=== PATIENT | female | born 1970 | race Caucasian/White ===

== ENCOUNTER 2021-02-26 15:38 | Emergency (ER) | payer OTHER, SELFPAY ==
--- NOTE | ~2021-02-26 | XR_ITS ---
XR chest 1V portable 02/26/2021 17:23 Indication: Covid like symptoms. Procedure: AP portable chest Comparison: No prior studies for comparison. Findings: Patchy bilateral airspace disease, compatible with pneumonia. No significant effusion. Hear t size normal. No pneumothorax. No acute osseous abnormality. Impression: 1: Patchy bilateral airspace disease, compatible with pneumonia. Reviewed, dictated and finalized at location A. Impression: 1: Patchy bilateral airspace disease, compatible with pneumonia.
[2021-02-26 15:47] VITALS: BP 150/95; PULSE 120; RESP 22; TEMP 37.2; O2SAT 98
[2021-02-26 16:48] VITALS: BP 144/93; PULSE 117; RESP 22; TEMP 36.9; O2SAT 98
[2021-02-26 17:25] LABS: Basophils Percent Auto 0.3 % (0.2-1.2); Eosinophils Absolute Auto 0.1 K/mm3 (0-0.3); Hematocrit 41.7 % (37.0-47.0); Hemoglobin 13.7 g/dL (12.0-15.0); Immature Granulocyte Absolute 0.03 K/mm3 (0.00-0.031); Immature Granulocyte Percent A 0.5 % (0-0.5); Lymphocytes Absolute Auto 1.66 K/mm3 (0.9-3.2); Lymphocytes Percent Auto 27.6 % (18.3-44.2); Mean Corpuscular HGB Conc 32.9 g/dl (32-36); Mean Corpuscular Hemoglobin 27.8 pg (26-34); Mean Corpuscular Volume 84.8 fl (80-100); Mean Platelet Volume 10.4 fl (7.4-10.4); Monocytes Absolute Auto 0.4 K/mm3 (0.1-0.6); Monocytes Percent Auto 6.3 % (2.6-8.5); Neutrophils Absolute Auto 3.9 K/mm3 (1.3-6.7); Neutrophils Percent Auto 64.3 % (45.5-73.1); Platelet Count Result 168 k/mm3 (150-375); Red Blood Count 4.92 M/mm3 (4.2-5.4); Red Cell Distribution Width 13.5 % (11.5-14.5)
--- NOTE | 2021-02-26 17:34 | ED.URI ---
HPI - URI/Sore Throat General Chief Complaint: Upper Respiratory Infection Stated Complaint: SOB Time Seen by Provider: 02/26/21 17:05 Source: patient Mode of arrival: ambulatory Limitations: no limitations History of Present Illness HPI Narrative: Patient is 51 years old white female unvaccinated for Covid, presents with Covid symptoms started 10 days ago in the form of headache, fever, chills, coughing, loss of taste and smell. Patient son tested +7 days ago. Currently patient main complaint is coughing and general weakness. Related Data Home Medications Medication Instructions Recorded Confirmed aspirin 02/26/21 Allergies Allergy/AdvReac Type Severity Reaction Status Date / Time azithromycin Allergy Intermediate Rash Verified 02/26/21 16:53 amoxicillin Allergy Unknown Rash Verified 02/26/21 16:53 clavulanic acid Allergy Unknown Rash Verified 02/26/21 16:53 codeine Allergy Unknown Rash Verified 02/26/21 16:53 Contrast Media Allergy Intermediate HIVES Uncoded 02/26/21 16:53 Review of Systems Review of Systems: CONSTITUTIONAL: Denies fever, chills, or sweats. EYES: Denies visual changes, redness, or discharge. ENT: Denies rhinorrhea, congestion, sore throat, or otalgia. CARDIOVASCULAR: Denies chest pain, palpitations, or edema. RESPIRATORY: Coughing, GASTROINTESTINAL: Denies abdominal pain, nausea, vomiting, or diarrhea. GENITOURINARY: Denies dysuria or hematuria. SKIN: Denies rash or itching. MUSCULOSKELETAL: Denies back pain, joint pain, or myalgia. NEUROLOGIC: Denies headache, numbness, or weakness. PSYCHIATRIC: Denies anxiety or depression. Exam Narrative: General appearance: Well-developed, well-nourished, intermittent coughing Skin: Normal color Head: Normocephalic, nontraumatic Eyes: Clear conjunctiva ENT: Oropharynx normal, ears normal, nose normal Neck: Supple, nontender Chest and respiratory: Airway patent, no respiratory distress, no accessory muscle use Heart: Regular rate/rhythm Abdomen: Soft, nontender, no organomegaly, quiet bowel sounds Vascular: Normal peripheral pulses, normal capillary refill. Musculoskeletal: Normal range of motion, nontender back Neurologic: Alert and oriented ?3, SUR[employer]ICIAN is normal as tested, no gross motor deficit Course Course Emergency Course: Stable Vital Signs Vital signs: Vital Signs Temperature 37.2 C 02/26/21 15:47 Pulse Rate 120 H 02/26/21 15:47 Respiratory Rate 22 H 02/26/21 15:47 Blood Pressure 150/95 H 02/26/21 15:47 Pulse Oximetry 98 02/26/21 15:47 Temperature 36.9 C 02/26/21 16:48 Pulse Rate 117 H 02/26/21 16:48 Respiratory Rate 22 H 02/26/21 16:48 Blood Pressure 144/93 H 02/26/21 16:48 Pulse Oximetry 98 02/26/21 16:48 MDM - URI/Sore Throat MDM Narrative Medical decision making narrative: Patient had cold symptoms for 10 days, oxygen saturation is 97-98 on room air, chest x-ray showed Covid pneumonia, hospitalization is not recommended at this time. Patient does not smoke, does not have any comorbidity to predict deterioration in the next few days.. Patient will be discharged on Tessalon, albuterol inhaler and Atrovent nasal spray, symptomatic treatment. Covid test ordered. Differential Diagnosis Differential diagnosis: Likely upper respiratory infection, viral infection and bronchitis Lab Data Result diagrams: 02/26/21 17:14 02/26/21 17:14 Labs: Lab Results 02/26/21 02/26/21 02/26/21 Range/Units 17:14 17:14 17:21 WBC 6.0 (4.5-10.0) K/mm3 RBC 4.92 (4.2-5.4) M/mm3 Hgb 13.7 (12.0-15.0) g/dL Hct 41.7 (37.0-47.0) % MCV 84.8 (80-100) fl MCH 27.8 (26-34) pg MCHC 32.9 (32-36)
[2021-02-26 17:35] LABS: Alanine Aminotransferase 18 U/L (4-35); Albumin Level 3.8 g/dL (3.5-5.1); Alkaline Phosphatase 62 U/L (38-126); Anion Gap 6 mmol/L (8-16); Aspartate Amino Transferase 33 U/L (14-36); Bilirubin,Total 0.5 mg/dL (0.2-1.3); Blood Urea Nitrogen 7 mg/dL (7-17); Calcium 8.5 mg/dL (8.4-10.2); Carbon Dioxide 29 mmol/L (22-30); Chloride 105 mmol/L (98-107); Estimated CRCL calculation 118 ml/min; Estimated Glomerular Filt Rate > 60; Glucose 110 mg/dL (65-110); Potassium 3.3 mmol/L (3.4-5.0); Sodium 140 mmol/L (137-145)
[2021-02-26 18:34] VITALS: BP 106/57; PULSE 93; RESP 16; TEMP 36.8; O2SAT 98
[2021-02-27 17:06] LABS: SARS-CoV-2 RNA PCR Positive
== END 2021-02-26 18:35 | disposition home or self-care (01) ==
PROVIDERS: Emergency Provider Emergency Medicine; PCP Emergency Medicine
DX: U07.1 COVID-19 (principal); J12.82 Pneumonia due to coronavirus disease 2019; Z79.82 Long term (current) use of aspirin
CPT/HCPCS: 36415; 71045; 80053; 85025; 99283; C9803; U0003; U0005

== ENCOUNTER 2021-03-11 08:51 | Outpatient (CLI) | payer OTHER, SELFPAY ==
--- NOTE | ~2021-03-11 | XR_ITS ---
XR chest 2V DATE: 03/11/2021 09:18 INDICATION: Cough, shortness of breath with exertion. Pneumonia follow-up. TECHNIQUE: PA and lateral views COMPARISON: 02/26/2021 portable AP chest FINDINGS: There is considerable interval improvement of patchy bilateral pulmonary infiltrates since 02/26/2021, with minimal residual. Normal heart size. No hilar or mediastinal enlargement. No pleural effusion or pulmonary vascular con gestion or pneumothorax. IMPRESSION: Considerable improvement of bilateral pulmonary infiltrates since 02/26/2021 Reviewed, dictated and finalized at location A.
== END 2021-03-11 08:52 | disposition home or self-care (01) ==
LOC: ANHIMG 08:56
PROVIDERS: PCP Emergency Medicine; Visit Provider Emergency Medicine
DX: J18.9 Pneumonia, unspecified organism (principal)
CPT/HCPCS: 71046

== ENCOUNTER 2022-09-28 18:03 | Observation (INO) | payer OTHER, SELFPAY ==
[2022-09-28] VITALS (9 sets, daily range): BP systolic 120–168; BP diastolic 67–87; PULSE 64–89; RESP 15–20; TEMP 36.3–36.9; O2SAT 98–100; BMI 35.7
--- NOTE | ~2022-09-28 | NM_ITS ---
EXAMINATION: NM pulmonary perfusion DATE: 09/29/2022 12:10 INDICATION: Chest pain TECHNIQUE: 5.23 mCi Tc-99m MAA by intravenous route. Scintigraphic images of the chest were obtained . COMPARISON: Chest radiograph dated 09/28/2022 FINDINGS: There is relatively homogeneous perfusion throughout the lungs with no perfusion defects identified. IMPRESSION: 1. Low probability for pulmonary embolism. Reviewed, dictated and finalized at location A.
--- NOTE | ~2022-09-28 | NM_ITS ---
EXAMINATION: NM morgan stress w perfusion DATE: 09/30/2022 09:56 INDICATION: Chest pain TECHNIQUE: Rest images were obtained following intravenous administration of 10.5 mCi Tc99m tetrofosm in (Myoview). The patient was infused intravenously with Lexiscan (Regadenoson). Then, 34.8 mCi Tc99m tetrofosmin (Myoview) was administered intravenously, and stress images were obtained. Data was diego nstructed into short axis and horizontal and vertical long axis SPECT images. Gated SPECT images were also obtained. COMPARISON: None. FINDINGS: There is no definite reversible or fixed perfusion abnormality to suggest ischemia or infar ction. There is normal left ventricular chamber size, wall motion and ejection fraction. Left ventr icular ejection fraction measures >70%. IMPRESSION: 1. Normal myocardial perfusion at rest and during stress. 2. Left ventricular ejection fraction measuring >70%. Reviewed, dictated and finalized at location A.
--- NOTE | ~2022-09-28 | XR_ITS ---
EXAMINATION: XR chest 2V Exam Date/Time: 09/28/2022 19:02 CDT HISTORY: Sternal chest pain x 2 hrs Comparison: 09/03/2022. RESULT: Lines, tubes, and devices: None. Lungs and pleura: Clear. Cardiomediastinal silhouette: Stable. Other: No acute osseous or upper abdominal finding. IMPRESSION: No acute cardiopulmonary process. Reviewed, dictated and finalized at location K.
--- NOTE | ~2022-09-28 | US_ITS ---
EXAMINATION: US venous doppler [facility] DATE: 09/29/2022 09:22 INDICATION: Lower limb pain. TECHNIQUE: Grayscale ultrasound images without and with compression and Doppler ultrasound images of the bilateral lower extremity veins were obtained. COMPARISON: None. FINDINGS: The visualized portions of right common femoral vein, profunda (deep) femoral vein, femoral vein, pop liteal vein, peroneal veins, posterior tibial veins, and greater saphenous vein outflow are patent. The visualized portions of left common femoral vein, profunda femoral vein, femoral vein, popliteal v ein, peroneal veins, posterior tibial veins, and greater saphenous vein outflow are patent. IMPRESSION: 1. No deep venous thrombosis. Reviewed, dictated and finalized at location A.
--- NOTE | ~2022-09-28 | CT_ITS ---
EXAMINATION: CT abdomen pelvis wo con DATE: 09/28/2022 20:14 INDICATION: flank pain TECHNIQUE: Computed tomography (CT) of the abdomen and pelvis was performed without intravenous contr ast. Automated exposure control and iterative reconstruction technique were employed. The dose-length product was 1397.92 mGy-cm. COMPARISON: None. FINDINGS: Lower thorax: Unremarkable Liver: Enlarged. Biliary/Gallbladder: Gallbladder is normal. No bile duct dilation. Pancreas: No mass or duct dilation. Spleen: Normal. Adrenals:No mass. Kidneys: No mass, stone, or hydronephrosis. GI tract: No small or large bowel dilation. Normal appendix. Mild diverticulosis without diverticulit is. Mesentery/Peritoneum: No ascites, mass, or free air. Prominent left upper and mid abdominal mesenteri c lymph nodes with fat halos and mild surrounding inflammatory mesenteric change. Retroperitoneum: No mass. Stent in the left common iliac vein. Pelvis: Pelvic organs are within normal limits. Soft Tissues: Soft tissues and body wall unremarkable. Bones: No acute osseous finding. IMPRESSION: Hepatomegaly. Mesenteric panniculitis. Left common iliac stent. Diverticulosis without diverticulitis . Otherwise unremarkable CT abdomen and pelvis findings. Reviewed, dictated and finalized at location K. IMPRESSION: Hepatomegaly. Mesenteric panniculitis. Left common iliac stent. Diverticulosis without diverticulitis. Otherwise unremarkable CT abdomen and pelvis findings.
--- NOTE | 2022-09-28 18:04 | ECG_ITS ---
Measurements Intervals Mabel Rate: 82 P: 50 KS: 127 QRS: 28 QRSD: 83 T: 39 QT: 365 QTc: 429 Interpretive Statements SINUS RHYTHM NONSPECIFIC ST ABNORMALITY ABNORMAL ECG NO PREVIOUS ECG AVAILABLE FOR COMPARISON Electronically Signed On 09-29-2022 14:34:22 CDT by Drew Laureano M.D.
[2022-09-28 18:30] LABS: Basophils Absolute Auto 0.1 K/mm3 (0.0-0.1); Basophils Percent Auto 0.8 % (0.2-1.2); Eosinophils Absolute Auto 0.8 K/mm3 (0-0.3); Eosinophils Percent Auto 6.7 % (0-4.4); Hematocrit 43.6 % (37.0-47.0); Hemoglobin 14.1 g/dL (12.0-15.0); Immature Granulocyte Absolute 0.04 K/mm3 (0.00-0.031); Immature Granulocyte Percent A 0.3 % (0-0.5); Lymphocytes Absolute Auto 3.42 K/mm3 (0.9-3.2); Lymphocytes Percent Auto 29.7 % (18.3-44.2); Mean Corpuscular HGB Conc 32.3 g/dl (32-36); Mean Corpuscular Volume 86.7 fl (80-100); Mean Platelet Volume 10.1 fl (7.4-10.4); Monocytes Absolute Auto 0.6 K/mm3 (0.1-0.6); Monocytes Percent Auto 5.4 % (2.6-8.5); Neutrophils Absolute Auto 6.6 K/mm3 (1.3-6.7); Neutrophils Percent Auto 57.1 % (45.5-73.1); Platelet Count Result 253 k/mm3 (150-375); Red Blood Count 5.03 M/mm3 (4.2-5.4); Red Cell Distribution Width 13.5 % (11.5-14.5); White Blood Count 11.5 K/mm3 (4.5-10.0)
[2022-09-28 18:40] LABS: Alanine Aminotransferase 19 U/L (6-35); Albumin Level 4.3 g/dL (3.5-5.1); Alkaline Phosphatase 72 U/L (38-126); Anion Gap 8 mmol/L (8-16); Aspartate Amino Transferase 24 U/L (14-36); Bilirubin,Total 0.6 mg/dL (0.2-1.3); Blood Urea Nitrogen 11 mg/dL (7-17); Calcium 9.2 mg/dL (8.4-10.2); Carbon Dioxide 28 mmol/L (22-30); Chloride 103 mmol/L (98-107); Estimated CRCL calculation 101 ml/min; Estimated Glomerular Filt Rate > 60; Glucose 115 mg/dL (65-110); Lipase 51 U/L (23-300); Partial Thromboplastin Time 21.4 SECONDS (22.3-36.8); Potassium 3.3 mmol/L (3.4-5.0); Prothrombin Time 12.5 Seconds (11.1-14.7); Sodium 139 mmol/L (137-145)
[2022-09-28 18:51] LABS: Troponin I < 0.012 ng/mL (0.000-0.034)
--- NOTE | 2022-09-28 19:30 | ED.CHESTPAIN ---
HPI - Chest Pain General Chief Complaint: Chest Pain Stated Complaint: CP Time Seen by Provider: 09/28/22 19:00 Source: patient and RN notes reviewed Mode of arrival: ambulatory Limitations: no limitations History of Present Illness HPI narrative: This is 52 year old female with history of hypertension who presents for evaluation of chest pain and shortness of breath. Patient states she had just finished having sexual intercourse when she developed chest pain. She reports she was getting up to walk to bathroom when she developed fatigue , shortness of breath and midsternal sharp chest pain. She also reports feeling like she was having palpitations. She noticed that walking back for the bathroom in ER, her chest pain has worsened. She also feels like she can't catch her breath. She also notes intermittent bilateral shoulder pain for 2 weeks that is random. She has not noticed this pain is exertional. She denies fever, chills, nausea or vomiting. She also reports intermittent bilateral flank pain for weeks. Denies history of heart disease. She has strong family history of heart disease. She rates her chest pain 3/10. Her last stress test was 5 years ago. Related Data Home Medications Medication Instructions Recorded Confirmed aspirin 81 mg capsule 81 mg PO DAILY 02/26/21 09/28/22 cholecalciferol (vitamin D3) 125 5,000 unit PO DAILY 09/28/22 09/28/22 mcg (5,000 unit) tablet (Vitamin D3) hydrochlorothiazide 25 mg tablet 25 mg PO DAILY 09/28/22 09/28/22 multivit with 1 tablet PO DAILY 09/28/22 09/28/22 [id number] 8 mg iron-400 mcg-300 mcg tablet (Multivitamin Women 50 Plus) Allergies Allergy/AdvReac Type Severity Reaction Status Date / Time azithromycin Allergy Intermediate Rash Verified 02/26/21 16:53 amoxicillin Allergy Unknown Rash Verified 02/26/21 16:53 clavulanic acid Allergy Unknown Rash Verified 02/26/21 16:53 codeine Allergy Unknown Rash Verified 02/26/21 16:53 Contrast Media Allergy Intermediate HIVES Uncoded 02/26/21 16:53 Review of Systems Constitutional: Constitutional: Denies weakness Cardiovascular: Cardiovascular: Reports chest pain, Denies syncope, Denies rapid heart rate, Denies irregular heart rhythm, Denies leg edema and Reports dyspnea Respiratory: Respiratory: Denies chest congestion, Denies hemoptysis, Denies excessive phlegm production and Reports dyspnea Gastrointestinal: Gastrointestinal: Denies abdominal pain, Denies hematochezia, Denies diarrhea and Denies vomiting Genitourinary: Genitourinary: Reports hematuria, Denies dysuria and Reports flank pain Musculoskeletal: Musculoskeletal: Denies joint swelling, Denies loss of height and Denies muscle weakness Neurologic: Denies syncope, Denies focal weakness and Denies weakness PMFSH Past Medical History Medical History (Updated 09/29/22 @ 05:54 by Edelmira León MD) Hypertension Surgical History Surgical History (Updated 09/28/22 @ 19:32 by Edelmira León MD) H/O sinus surgery Family History Family History (Updated 09/28/22 @ 22:17 by Carmen Alonzo RN) Grandparent History of blood clots Diabetes mellitus Cerebrovascular accident Father Sudden cardiac at age 38 Mother Afib Chronic obstructive pulmonary disease Other Hypertension Social History Social History (Updated 09/28/22 @ 19:33 by Edelmira León MD) Smoking status: Never smoker Second hand tobacco smoke exposure: Yes (parents) Alcohol intake: never Substance use: never Lack of Transportation: No Lack of Food: Never True Current Housing: I Have Housing Concerned About Future Housing: No Difficulty Paying Gas/Electric Bills: No Difficulty Paying for Meds: No Currently Unemployed: No Education: Associate Degree Difficulty w/ Childcare or Family Care: No Spiritual care concerns: Yes (moravian) Exam Const: General: healthy appearing, no acute distres
[2022-09-28] MEDS: ASPIRIN 81 MG CHEWABLE TABLET 324 MG PO (19:31)
[2022-09-28] MEDS: NITROGLYCERIN OINTMENT 1 INCH DOSE TRANSDERM (19:34)
[2022-09-28] MEDS: POTASSIUM CHLORIDE 20 MEQ TABLET PO (19:34)
[2022-09-28 19:45] LABS: D Dimer 0.81 ug/mL (<0.48)
[2022-09-28 20:14] LABS: Add Urine Microscopic? YES; Appearance Urine Clear (Clear); Bacteria Urine None Seen /hpf; Bilirubin Urine Negative (Negative); Blood Urine 1+ (Negative); Color Urine Yellow (Yellow); Glucose Urine UA Negative (Negative); Ketones Urine Negative (Negative); Leukocyte Esterase Ur Trace LEU/UL (Negative); Need Manual Microscopic Reviewed; Nitrate Urine Negative (Negative); Non Pathogenic Casts 0-2; Protein Urine Negative (Negative); RBC Urine 0-2 /hpf (0-2); Specific Grav Ur 1.003 (1.001-1.035); Squamous Epithelial Cell Urine Occasional /hpf (Few); Urobilinogen Urine 0.2 mg/dL (<2.0); WBC Urine 0-5 /hpf
--- NOTE | 2022-09-28 20:45 | PM.IMHP ---
H&P: HPI History of Present Illness Date/Time: 09/28/22 20:45 Chief Complaint: Chest pain Narrative: This is a 52-year-old female with past medical history significant for hypertension, peripheral vascular disease, status post stent placement, obesity. Patient presents to the emergency room after having epigastric chest pain nonradiating rate set at 8 of to 10 of intensity at its worse currently 3/10 patient with nitro paste on. Patient has been in her usual state of health up until this point this happened after moderate physical activity denies any syncope, but she did become very dizzy and lightheaded and had near syncopal episode was holding onto the chavarria, no palpitations, no nausea, no vomiting, no cough, had some shortness of breath with it. Preliminary workup has been essentially nonrevealing. Patient is been placed in observation for further evaluation management and treatment. Review of Systems Review of Systems: Epigastric chest pain, lightheadedness, near-syncope. Constitutional: Constitutional: Denies chills, Denies fatigue, Denies fever(s), Denies lethargy, Denies malaise, Denies night sweats, Denies poor appetite and Denies weakness Eyes: Eyes: Denies change in vision ENT: Denies dysphagia, Denies odynophagia and Reports disequilibrium Cardiovascular: Cardiovascular: Reports chest pain, Reports leg edema, Reports lightheadedness, Denies palpitations and Reports dyspnea Respiratory: Respiratory: Denies chest congestion, Denies cough, Denies pain on inspiration, Denies dyspnea and Denies wheezing Gastrointestinal: Gastrointestinal: Denies abdominal pain, Denies dyspepsia, Denies heartburn, Denies diarrhea, Denies nausea and Denies vomiting Genitourinary: Genitourinary: Denies dysuria Musculoskeletal: Musculoskeletal: Denies back pain, Denies myalgias and Denies muscle weakness Integumentary/Breasts: Skin/Breast: Denies rash Neurologic: Denies focal weakness and Denies Sensory deficit (Neuro) Psychiatric: Psychiatric: Reports no additional psychiatric complaints and Reports as per HPI Endocrine: Endocrine: Denies cold intolerance, Denies fatigue, Denies flushing, Denies heat intolerance, Denies polyphagia, Denies polydipsia and Denies palpitations Hematologic/Lymphatic: Hematologic/Lymphatic: Reports no additional hematologic/lymphatic complaints and Reports as per HPI Allergic/Immunologic: Allergic/Immunologic: Reports no additional allergic/immunologic complaints and Reports as per [facility] Past Medical History Medical History (Updated 09/29/22 @ 00:29 by Justin García MD) Hypertension Surgical History Surgical History (Updated 09/28/22 @ 19:32 by Edelmira León MD) H/O sinus surgery Family History Family History (Updated 09/28/22 @ 22:17 by Carmen Alonzo RN) Grandparent History of blood clots Diabetes mellitus Cerebrovascular accident Father Sudden cardiac at age 38 Mother Afib Chronic obstructive pulmonary disease Other Hypertension Social History Social History (Updated 09/28/22 @ 19:33 by Edelmira León MD) Smoking status: Never smoker Second hand tobacco smoke exposure: Yes (parents) Alcohol intake: never Substance use: never Lack of Transportation: No Lack of Food: Never True Current Housing: I Have Housing Concerned About Future Housing: No Difficulty Paying Gas/Electric Bills: No Difficulty Paying for Meds: No Currently Unemployed: No Education: Associate Degree Difficulty w/ Childcare or Family Care: No Spiritual care concerns: Yes (denominational) Meds Home Medications and Allergies Home Medications Medication Instructions Recorded Confirmed Type aspirin 81 mg capsule 81 mg PO DAILY 02/26/21 09/28/22 History cholecalciferol (vitamin D3) 125 5,000 unit PO DAILY 09/28/22 09/28/22 History mcg (5,000 unit) tablet (Vitamin D3) hydrochlorothiazide 25 mg tablet 25 mg PO DAILY
[2022-09-28] MEDS: ENOXAPARIN 120 MG/0.8 ML SYRINGE 115 MG SUB-Q (21:15)
[2022-09-28 22:09] LABS: Troponin I < 0.012 ng/mL (0.000-0.034)
--- NOTE | 2022-09-28 22:30 | PC.NURSE ---
This patient, Estefany Hendricks, was admitted to IMU Room 212-01. Patient/family oriented to hospital policies and general routines including ID bracelet, bed and alarms, visiting hours, pain management, procedures, bathroom and other care routines, personal items, smoking policy, room service/diet, and visiting hours. Information on how to activate the Rapid Response Team has been discussed. Patient/Family are encouraged to report perceived risks to care and to ask questions if they do not understand what they are told or what they should do.
[2022-09-29] VITALS (15 sets, daily range): BP systolic 113–139; BP diastolic 59–74; PULSE 63–83; RESP 16–20; TEMP 36.1–36.7; O2SAT 96–100
[2022-09-29] MEDS: NITROGLYCERIN OINTMENT 1 INCH DOSE TRANSDERM (00:22)
[2022-09-29 02:09] LABS: Troponin I < 0.012 ng/mL (0.000-0.034)
[2022-09-29] MEDS: ONDANSETRON INJ 4 MG/2 ML VIAL IV PUSH (04:17)
[2022-09-29] MEDS: ACETAMINOPHEN 500 MG TABLET 1000 MG PO (04:18)
--- NOTE | 2022-09-29 04:28 | PC.NURSE ---
Addendum entered by Carmen Alonzo RN 09/29/22 04:31: Blood pressure Original Note: Assessed pt at 0400, pt had no complaints. Called out shortly after getting up to go to bathroom. Upon standing pt had severe headache and nausea. Administered zofran and tylenol and wiped off nitro paste. Pt instructed to call right away if chest pain worsens.
[2022-09-29 04:56] LABS: Basophils Absolute Auto 0.1 K/mm3 (0.0-0.1); Basophils Percent Auto 0.9 % (0.2-1.2); Eosinophils Absolute Auto 0.7 K/mm3 (0-0.3); Eosinophils Percent Auto 7.1 % (0-4.4); Hematocrit 37.6 % (37.0-47.0); Hemoglobin 12.2 g/dL (12.0-15.0); Immature Granulocyte Absolute 0.03 K/mm3 (0.00-0.031); Immature Granulocyte Percent A 0.3 % (0-0.5); Lymphocytes Absolute Auto 3.59 K/mm3 (0.9-3.2); Lymphocytes Percent Auto 36.6 % (18.3-44.2); Mean Corpuscular HGB Conc 32.4 g/dl (32-36); Mean Corpuscular Hemoglobin 27.2 pg (26-34); Mean Corpuscular Volume 83.7 fl (80-100); Monocytes Absolute Auto 0.7 K/mm3 (0.1-0.6); Monocytes Percent Auto 6.7 % (2.6-8.5); Neutrophils Absolute Auto 4.7 K/mm3 (1.3-6.7); Neutrophils Percent Auto 48.4 % (45.5-73.1); Platelet Count Result 226 k/mm3 (150-375); Red Blood Count 4.49 M/mm3 (4.2-5.4); Red Cell Distribution Width 13.4 % (11.5-14.5); White Blood Count 9.8 K/mm3 (4.5-10.0)
[2022-09-29] MEDS: SUMAtriptan SUCCINATE 25 MG TABLET 100 MG PO (05:20)
[2022-09-29 08:42] LABS: Anion Gap 4 mmol/L (8-16); Blood Urea Nitrogen 10 mg/dL (7-17); Calcium 8.3 mg/dL (8.4-10.2); Carbon Dioxide 31 mmol/L (22-30); Chloride 103 mmol/L (98-107); Estimated CRCL calculation 102 ml/min; Estimated Glomerular Filt Rate > 60; Glucose 111 mg/dL (65-110); Potassium 3.4 mmol/L (3.4-5.0); Sodium 138 mmol/L (137-145)
[2022-09-29] MEDS: hydroCHLOROthiazide 25 MG TABLET PO (09:58)
[2022-09-29] MEDS: ASPIRIN 81 MG CHEWABLE TABLET PO (09:58)
[2022-09-29] MEDS: THERAPEUTIC MULTIVITAMINS/MINERALS TAB (*BKC) 1 TABLET PO (09:58)
[2022-09-29] MEDS: CHOLECALCIFEROL 1,000 UNITS TABLET 5000 UNITS PO (09:58)
--- NOTE | 2022-09-29 11:05 | PM.IMPN ---
Progress Note: A&P Assessment and Plan (1) Chest pain: Code(s): R07.9 - Chest pain, unspecified Status: Acute Assessment and Plan: Admit to IMU Lexiscan stress test in a.m. Supportive care Continue nitropaste (2) Peripheral vascular disease: Code(s): I73.9 - Peripheral vascular disease, unspecified Status: Acute Assessment and Plan: Unchanged (3) Elevated d-dimer: Code(s): R79.89 - Other specified abnormal findings of blood chemistry Status: Acute Assessment and Plan: V/Q scan in a.m. Bilateral lower extremity venous Doppler in a.m. Patient received therapeutic dose of Lovenox Subjective Date/time seen: 09/29/22 11:05 Chest pain has resolved. Exam Narrative: Patient is is sitting semiupright position in a stretcher Const: General: comfortable, no acute distress, well developed, alert, awake and average body habitus Nutritional Appearance: average body habitus Orientation/consciousness: patient oriented x3 Other: Well-appearing HENMT: Head: normal to inspection, normocephalic and atraumatic Ears: hearing grossly normal bilaterally Face/Nose/Sinus: normal facial exam Face and sinus: normal facial exam Eyes: General: appearance normal, both eyes and all related structures Pupils: Equal, round and reactive pupils present EOM: EOMs intact bilaterally Neck: Neck: full ROM, no lymphadenopathy and no JVD Thyroid: thyroid normal Lymphatic: no lymphadenopathy noted Resp: Effort & Inspection: normal respiratory effort and able to speak in complete sentences Auscultation: clear to auscultation bilaterally Cardio: Jugular venous distension: no JVD Rate: regular rate Rhythm: regular rhythm Heart sounds: S1 normal heart sound present and S2 normal heart sound present : General: Yes deferred Skin: Rashes: no rashes Wounds: no wounds Neuro: General: patient oriented x3 and CN's II-XI intact bilaterally Cranial nerves: Yes CN's II-XII intact bilaterally and Yes Equal, round and reactive pupils present Cognition (Neuro): normal cognition Speech: normal speech Gait exam (Neuro): Normal gait present Motor exam (neuro): 5/5 motor strength present throughout Sensory Exam: No Sensory deficit (Neuro) Extrem: General: normal to inspection, full ROM, no joint enlargement and no pedal edema Objective Data Vital Signs Vital Signs: Vital Signs - 24 hr 09/28/22 18:10 09/28/22 19:19 09/28/22 20:00 Temperature 98.5 F Pulse Rate 82 78 64 Respiratory Rate 15 18 16 Blood Pressure 168/84 H 150/87 H 141/83 H Pulse Oximetry 100 99 99 Oxygen Delivery Room Air 09/28/22 20:30 09/28/22 21:09 09/28/22 22:07 Temperature 97.4 F L Pulse Rate 76 67 65 Respiratory Rate 18 17 20 Blood Pressure 126/77 120/83 148/72 H Pulse Oximetry 98 100 100 Oxygen Delivery 09/28/22 23:08 09/28/22 23:00 09/29/22 00:20 Temperature 97.9 F Pulse Rate 65 Respiratory Rate 20 Blood Pressure 127/67 124/73 Pulse Oximetry 99 Oxygen Delivery Room Air 09/29/22 00:00 09/28/22 22:00 09/29/22 02:00 Temperature Pulse Rate 71 89 78 Respiratory Rate Blood Pressure Pulse Oximetry Oxygen Delivery 09/29/22 04:15 09/29/22 04:00 09/29/22 04:00 Temperature 97 F L Pulse Rate 80 Respiratory Rate 20 Blood Pressure 114/70 113/59 L Pulse Oximetry 100 Oxygen Delivery Room Air 09/29/22 04:00 09/29/22 06:00 09/29/22 08:00 Temperature 97.2 F L Pulse Rate 81 72 68 Respiratory Rate 18 Blood Pressure 133/72 Pulse Oximetry 99 Oxygen Delivery 09/28/22 22:11 Temperature 97.4 F L Pulse Rate 65 Respiratory Rate 20 Blood Pressure 148/72 H Pulse Oximetry Oxygen Delivery Intake/Output Intake/Output: Intake & Output 09/26/22 09/27/22 09/28/22 09/29/22 23:59 23:59 23:59 23:59 Output Total 100 Balance -100 Meds/Results Medications: Active Medications Generic Name Dose Route Start Last Admin Trade
--- NOTE | 2022-09-29 11:26 | PM.CNCAR ---
Assessment and Plan Assessment and plan (1) Chest pain: Code(s): R07.9 - Chest pain, unspecified Status: Acute Assessment and Plan: Atypical chest pain, now chest pain free. EKG without ischemic changes. Troponins negative x 3. Lexiscan stress test ordered, to be done 09/30 If Lexiscan stress test is negative, patient can be discharged home from a cardiac standpoint. History of Present Illness History of Present Illness Consult date/time: 09/29/22 11:26 Requesting physician: Justin García MD Consult reason: chest pain Reason For Visit: Chest Pain, Panniculitis Narrative: We are consulted for chest pain. This is a 52-year-old female with a history of hypertension, peripheral vascular disease s/p stent, obesity who presented with anterior chest pain that began after intercourse with her around 5pm yesterday and when patient was getting ready for work. Pain was sharp, worsened with deep inspiration and exertion. Relieved with ASA. Patient reports having similar chest pain a few years ago when she was working a very stressful job. Has not had chest pain since her episode yesterday. EKG without ischemic changes. Troponins negative x 3. Lexiscan stress test already ordered. Review of Systems Review of Systems: All systems reviewed & are unremarkable except as noted in HPI and below (HPI) PMFSH Past Medical History Medical History Hypertension Surgical History Surgical History H/O sinus surgery Family History Family History Grandparent History of blood clots Diabetes mellitus Cerebrovascular accident Father Sudden cardiac at age 38 Mother Afib Chronic obstructive pulmonary disease Other Hypertension Social History Social History Smoking status: Never smoker Second hand tobacco smoke exposure: Yes (parents) Alcohol intake: never Substance use: never Lack of Transportation: No Lack of Food: Never True Current Housing: I Have Housing Concerned About Future Housing: No Difficulty Paying Gas/Electric Bills: No Difficulty Paying for Meds: No Currently Unemployed: No Education: Associate Degree Difficulty w/ Childcare or Family Care: No Spiritual care concerns: Yes (mosque) Meds Home Medications and Allergies Home Medications Medication Instructions Recorded Confirmed Type aspirin 81 mg capsule 81 mg PO DAILY 02/26/21 09/28/22 History cholecalciferol (vitamin D3) 125 5,000 unit PO DAILY 09/28/22 09/28/22 History mcg (5,000 unit) tablet (Vitamin D3) hydrochlorothiazide 25 mg tablet 25 mg PO DAILY 09/28/22 09/28/22 History multivit with 1 tablet PO DAILY 09/28/22 09/28/22 History [id number] 8 mg iron-400 mcg-300 mcg tablet (Multivitamin Women 50 Plus) Allergies Allergy/AdvReac Type Severity Reaction Status Date / Time azithromycin Allergy Intermediate Rash Verified 02/26/21 16:53 amoxicillin Allergy Unknown Rash Verified 02/26/21 16:53 clavulanic acid Allergy Unknown Rash Verified 02/26/21 16:53 codeine Allergy Unknown Rash Verified 02/26/21 16:53 Contrast Media Allergy Intermediate HIVES Uncoded 02/26/21 16:53 Vital Signs Vital Signs - 24 hr 09/28/22 18:10 09/28/22 19:19 09/28/22 20:00 Temperature 36.9 C Pulse Rate 82 78 64 Respiratory Rate 15 18 16 Blood Pressure 168/84 H 150/87 H 141/83 H Pulse Oximetry 100 99 99 Oxygen Delivery Room Air 09/28/22 20:30 09/28/22 21:09 09/28/22 22:07 Temperature 36.3 C L Pulse Rate 76 67 65 Respiratory Rate 18 17 20 Blood Pressure 126/77 120/83 148/72 H Pulse Oximetry 98 100 100 Oxygen Delivery 09/28/22 23:08 09/28/22 23:00 09/29/22 00:20 Temperature 36.6 C Pulse Rate 65 Respiratory Rate 20 Blood Pres
[2022-09-30] VITALS (11 sets, daily range): BP systolic 115–148; BP diastolic 66–96; PULSE 65–84; RESP 16; TEMP 36.1–36.8; O2SAT 96–100
--- NOTE | 2022-09-30 09:29 | PM.PNCARD ---
Progress Note: A&P Assessment and Plan (1) Chest pain: Code(s): R07.9 - Chest pain, unspecified Status: Acute Plan Atypical chest pain, now chest pain free. EKG without ischemic changes. Troponins negative x 3. Lexiscan stress test ordered, to be done 09/30 If Lexiscan stress test is negative, patient can be discharged home from a cardiac standpoint. Subjective Date/time seen: 09/30/22 09:29 Interval history: Reason for visit: Chest pain HPI: This is a 52-year-old female with a history of hypertension, peripheral vascular disease s/p stent, obesity who presented with anterior chest pain that began after intercourse with her around 5pm yesterday and when patient was getting ready for work. Pain was sharp, worsened with deep inspiration and exertion. Relieved with ASA. Patient reports having similar chest pain a few years ago when she was working a very stressful job. Has not had chest pain since her episode yesterday. EKG without ischemic changes. Troponins negative x 3. Lexiscan stress test already ordered. Date of service 09/30: No acute events overnight. No further chest pain since prior to admission. Review of Systems Review of Systems: 8 point ROS obtained. Negative, unless stated in HPI. Exam Const: General: comfortable and no acute distress HENMT: Mouth: Yes moist mucous membranes Eyes: General: appearance normal, both eyes and all related structures Sclera: sclerae normal Neck: Neck: supple Resp: Effort & Inspection: normal respiratory effort Auscultation: clear to auscultation bilaterally Cardio: Rate: regular rate Rhythm: regular rhythm Heart sounds: no murmurs GI: GI Palp: Yes Soft to palpation and No Tenderness to palpation present (GI) Skin: General skin exam: normal color Neuro: Speech: normal speech Extrem: General: normal to inspection Psych: Mental Status: mental status grossly normal Affect: normal affect Objective Data Vital Signs Vital Signs: Vital Signs - 24 hr 09/29/22 12:00 09/29/22 12:45 09/29/22 13:39 Temperature 36.4 C L Pulse Rate 74 83 63 Respiratory Rate 18 Blood Pressure 139/67 Pulse Oximetry 97 Oxygen Delivery 09/29/22 14:48 09/29/22 16:00 09/29/22 16:00 Temperature 36.7 C Pulse Rate 70 73 Respiratory Rate 16 Blood Pressure 122/71 Pulse Oximetry 96 99 Oxygen Delivery Room Air 09/29/22 16:00 09/29/22 18:00 09/29/22 20:00 Temperature 36.5 C Pulse Rate 74 73 Respiratory Rate 16 Blood Pressure 119/74 Pulse Oximetry 99 Oxygen Delivery Room Air 09/29/22 20:00 09/29/22 20:00 09/29/22 22:00 Temperature Pulse Rate 67 76 Respiratory Rate Blood Pressure Pulse Oximetry Oxygen Delivery Room Air 09/30/22 00:00 09/30/22 00:00 09/30/22 02:00 Temperature Pulse Rate 77 76 Respiratory Rate Blood Pressure Pulse Oximetry Oxygen Delivery Room Air 09/30/22 00:00 09/30/22 02:55 09/30/22 02:59 Temperature 36.2 C L Pulse Rate 74 Respiratory Rate 16 Blood Pressure 115/66 115/66 Pulse Oximetry 100 Oxygen Delivery Room Air 09/30/22 04:00 09/30/22 06:00 09/30/22 08:18 Temperature Pulse Rate 68 78 84 Respiratory Rate Blood Pressure Pulse Oximetry 96 Oxygen Delivery Room Air Intake/Output Intake/Output: Intake & Output 09/27/22 09/28/22 09/29/22 09/30/22 23:59 23:59 23:59 23:59 Intake Total 700 550 Output Total 300 400 Balance 400 150 Meds/Results Medications: Active Medications Generic Name Dose Route Start Last Admin Trade Name Freq PRN Reason Stop Dose Admin Acetaminophen 1,000 mg 09/29/22 01:14 09/29/22 04:18 Acetaminophen 500 Mg Tablet PO 1,000 mg Q6H PRN Administration Mild Pain (1-3) or Fever Aspirin 81 mg 09/29/22 09:00 09/29/22 09:58 Aspirin 81 Mg Chewable Tablet PO 81 mg DAILY HEENA Administration Hydrochlorothiazide 25 mg 09/29/22 09:00 09/29/22 09:58 Hyd
[2022-09-30] MEDS: ACETAMINOPHEN 500 MG TABLET 1000 MG PO (09:42)
[2022-09-30] MEDS: CHOLECALCIFEROL 1,000 UNITS TABLET 5000 UNITS PO (09:43)
[2022-09-30] MEDS: hydroCHLOROthiazide 25 MG TABLET PO (09:43)
[2022-09-30] MEDS: ASPIRIN 81 MG CHEWABLE TABLET PO (09:43)
[2022-09-30] MEDS: THERAPEUTIC MULTIVITAMINS/MINERALS TAB (*BKC) 1 TABLET PO (09:43)
[2022-09-30] MEDS: KETOROLAC 15 MG/ML VIAL (*BKC) IV PUSH (12:51)
--- NOTE | 2022-09-30 14:33 | PM.DS ---
DS: Admitting Diagnosis Discharge Date 09/30/22 Admitting Diagnosis Chest pain DS: Discharge Diagnosis Discharge Diagnosis (1) Chest pain: Code(s): R07.9 - Chest pain, unspecified Status: Acute DS: Summary Hospital Course Reason for hospitalization: Chest pain Hospital Course: 52 years old F presented with chest pain, Cardiology was consulted,EKG and troponin were unremarkable, Underwent nuclear stress test which was unremarkable. D/w Cardiology, Discharged home in stable condition. Status at Discharge Functional status at discharge: independent ambulation Overall status at discharge: patient is back to baseline Time Spent with Patient Time attestation: Total time spent providing and/or coordinating discharge services: Time spent: Less than 30 minutes Exam Const: General: comfortable HENMT: Face/Nose/Sinus: Normal nares present Mouth: Yes moist mucous membranes Eyes: Pupils: Equal, round and reactive pupils present Neck: Neck: supple Resp: Effort & Inspection: normal respiratory effort Auscultation: clear to auscultation bilaterally Cardio: Rate: regular rate Rhythm: regular rhythm GI: GI Palp: Yes Soft to palpation Auscultation: normal bowel sounds Skin: General skin exam: normal color Neuro: Motor exam (neuro): 5/5 motor strength present throughout Extrem: General: normal to inspection Psych: Mental Status: mental status grossly normal Discharge Plan Discharge Attending physician on discharge: Susan Espinal Consulting providers: Steven Bowden Discharging Clinician: Susan Espinal Anticipated Discharge Date/Time: 09/30/22 14:05 Patient Disposition: Home, Self-Care Activity: as tolerated Diet: regular Patient Instructions: Antibiotic Form, Chest Pain (DC), Pain Management (DC) Stand Alone Forms: General Discharge Information Follow-up/Referrals: Anup Knutson MD [Primary Care Provider] - 2 Weeks Discharge Medications: Continued aspirin 81 mg Capsule 81 mg PO DAILY hydrochlorothiazide 25 mg tablet 25 mg PO DAILY cholecalciferol (vitamin D3) [Vitamin D3] 125 mcg (5,000 unit) Tablet 5,000 unit PO DAILY Multivitamin Women 50 Plus 8 mg iron-400 mcg-300 mcg Tablet 1 tablet PO DAILY Date of admission: 09/28/22 21:09 Primary Care Provider: Anup Knutson Admitting Provider: Justin García V. Attending physician on admission: Justin García V. Condition: Im[facility] Discharge Hospital Discharge: [id number] Hosp D/C 30 Min
--- NOTE | 2022-09-30 23:16 | EST_ITS ---
Patient Info Name: Estefany Hendricks Age: 52 years : 1970 Gender: Female Ht: 71 in Wt: 256 lbs BSA: 2.45 m2 HR: 74 bpm BP: 118 / 79 mmHg Heart Rhythm: Sinus Rhythm Exam Date: 09/30/2022 8:53 AM Exam Location: [facility] Stress Patient Status: Inpatient Admit Date: 09/28/2022 Staff Ordering Physician: Justin García MD Attending Provider: Justin García MD Exercise Technologist: Sadie Zapata CT Exercise Physician: Madhav Arredondo MD Exam Type: CA stress morgan w NM Study Info Indications R07.89 - Other chest pain A regadenoson stress test was performed. Summary 1. [address] depression - inferolateral leads, consistent with ischemic ST changes. 2. Please correlate with nuclear medicine images, reported separately. Protocol: Lexiscan Stress ECG Details Stage: REST Duration (min): 1 min : 2 sec HR (bpm): 77 SBP (mmHg): 118 DBP (mmHg): 79 Stage: REST Duration (min): 5 min : 43 sec HR (bpm): 93 SBP (mmHg): 118 DBP (mmHg): 79 Stage: STAGE 1 Duration (min): 1 min : 0 sec HR (bpm): 125 SBP (mmHg): 143 DBP (mmHg): 72 Stage: RECOVERY Duration (min): 1 min : 0 sec HR (bpm): 118 SBP (mmHg): 143 DBP (mmHg): 72 Stage: RECOVERY Duration (min): 2 min : 0 sec HR (bpm): 115 SBP (mmHg): 143 DBP (mmHg): 72 Stage: RECOVERY Duration (min): 2 min : 54 sec HR (bpm): 107 SBP (mmHg): 131 DBP (mmHg): 74 Rest HR: 93 bpm Peak HR: 125 bpm Rest Sys BP: 118 mmHg Peak Sys BP: 143 mmHg Max Pred HR: 169 bpm % Max Pred HR: 74 % Target HR: 144 bpm Max RPP: 17,875 bpm*mmHg Total Time: 1 min : 0 sec Rest Gómez BP: 79 mmHg Peak Gómez BP: 72 mmHg Total Dose: 0.4 mg Resting ECG Sinus rhythm. Nonspecific ST and T wave abnormality. Stress ECG Sinus tachycardia. [address] depression - inferolateral leads, consistent with ischemic ST changes. Report Signatures
== END 2022-09-30 15:16 | disposition home or self-care (01) ==
LOC: ANHED 19:00 → ANHIMU 09-29 05:54
PROVIDERS: Chiropractor; Emergency Medicine; Admitting Provider Internal Medicine; Emergency Provider General Practice; PCP Emergency Medicine; Visit Provider Internal Medicine
DX: R07.9 Chest pain, unspecified (principal); I73.9 Peripheral vascular disease, unspecified; Z98.62 Peripheral vascular angioplasty status; R79.89 Other specified abnormal findings of blood chemistry; M79.662 Pain in left lower leg; M79.661 Pain in right lower leg; R53.83 Other fatigue; R42 Dizziness and giddiness; R00.2 Palpitations; M25.512 Pain in left shoulder; M25.511 Pain in right shoulder; R10.9 Unspecified abdominal pain; R31.9 Hematuria, unspecified; E66.9 Obesity, unspecified; Z68.35 Body mass index [BMI] 35.0-35.9, adult; I10 Essential (primary) hypertension; R94.31 Abnormal electrocardiogram [ECG] [EKG]; R79.1 Abnormal coagulation profile; R16.0 Hepatomegaly, not elsewhere classified; K65.4 Sclerosing mesenteritis; K57.90 Diverticulosis of intestine, part unspecified, without perforation or abscess without bleeding; Z77.22 Contact with and (suspected) exposure to environmental tobacco smoke (acute) (chronic); Z79.82 Long term (current) use of aspirin; Z79.899 Other long term (current) drug therapy; Z82.49 Family history of ischemic heart disease and other diseases of the circulatory system
CPT/HCPCS: 36415; 71046; 74176; 78452; 78580; 80048; 80053; 81001; 83690; 84484; 85025; 85380; 85610; 85730; 93005; 93017; 93970; 96372; 96374; 96375; 99285; A9270; A9502; A9540; G0378; J1650; J1885; J2405; J2785

== ENCOUNTER 2022-12-03 09:29 | Emergency (ER) | payer OTHER, SELFPAY ==
[2022-12-03] VITALS (8 sets, daily range): BP systolic 122–145; BP diastolic 74–87; PULSE 65–79; RESP 12–18; TEMP 36.4; O2SAT 97–100
--- NOTE | ~2022-12-03 | CT_ITS ---
Non-contrast CT scan of the Abdomen and Pelvis Clinical indication: Abdominal pain Technique: 2.5 mm axial scans were obtained through the abdomen and pelvis without intravenous or or al contrast. Dose reduction technique was used on this scan by utilizing automated exposure control a nd iterative reconstruction technique. The dose-length product (DLP) was 1481.52 mGy-cm. COMPARISON: 09/28/2022 Findings: Images through the lung bases reveal no abnormalities. There are probable bilateral parapelvic renal cysts. There is no evidence of renal or ureteral calcul i. The kidneys and the ureters are nondilated. The liver, spleen, pancreas, gallbladder, and adrenals appear normal. There is no aortic aneurysm. L eft common iliac vein stent present. There is no evidence of bowel obstruction. Minimal haziness in the central mesentery with shotty lymp h nodes in present. Images through the pelvis were performed. There is no evidence of ascites or lymphadenopathy. Urinary bladder unremarkable. No adnexal mass seen. Impression: Mild mesenteric panniculitis. Bilateral parapelvic renal cysts. Reviewed, dictated and finalized at location . Impression: Mild mesenteric panniculitis. Bilateral parapelvic renal cysts.
--- NOTE | ~2022-12-03 | XR_ITS ---
EXAMINATION: XR chest 1V INDICATION: Right upper quadrant pain TECHNIQUE: AP view of the chest is obtained. COMPARISON: 09/28/2022 FINDINGS: The lungs are free of acute opacities. No pleural effusion or pneumothorax. The cardiomedia stinal silhouette is normal. The visualized bones and soft tissues are unremarkable. IMPRESSION: 1. No acute cardiopulmonary abnormality. Reviewed, dictated and finalized at location L.
--- NOTE | 2022-12-03 09:34 | ED.ABDPAIN ---
HPI - Abdominal Pain General Chief Complaint: Abdominal Pain Stated Complaint: abd pain Time Seen by Provider: 12/03/22 09:34 Source: patient and family Mode of arrival: ambulatory Limitations: no limitations History of Present Illness HPI narrative: 52 years old white female came to the emergency room by private car complaining of right upper quadrant pain radiating straight to the right back. Worse with eating associated with nausea. History of intermittent constipation and diarrhea, IBS. No history of abdominal surgery. Patient is menopause.. She she denies any fever or chills. Related Data Home Medications Medication Instructions Recorded Confirmed aspirin 81 mg capsule 81 mg PO DAILY 02/26/21 09/28/22 cholecalciferol (vitamin D3) 125 5,000 unit PO DAILY 09/28/22 09/28/22 mcg (5,000 unit) tablet (Vitamin D3) hydrochlorothiazide 25 mg tablet 25 mg PO DAILY 09/28/22 09/28/22 multivit with 1 tablet PO DAILY 09/28/22 09/28/22 [id number]-[id number]-[id number]-lutein 8 mg iron-400 mcg-300 mcg tablet (Multivitamin Women 50 Plus) Allergies Allergy/AdvReac Type Severity Reaction Status Date / Time azithromycin Allergy Intermediate Rash Verified 02/26/21 16:53 clavulanic acid Allergy Unknown Rash Verified 02/26/21 16:53 codeine Allergy Unknown Rash Verified 02/26/21 16:53 Contrast Media Allergy Intermediate HIVES Uncoded 02/26/21 16:53 Review of Systems Review of Systems: All systems reviewed & are unremarkable except as noted in HPI and below PMFSH Past Medical History Medical History Hypertension Surgical History Surgical History H/O sinus surgery Family History Family History Grandparent History of blood clots Diabetes mellitus Cerebrovascular accident Father Sudden cardiac at age 38 Mother Afib Chronic obstructive pulmonary disease Other Hypertension Social History Social History Smoking status: Never smoker Second hand tobacco smoke exposure: Yes (parents) Alcohol intake: never Substance use: never Lack of Transportation: No Lack of Food: Never True Current Housing: I Have Housing Concerned About Future Housing: No Difficulty Paying Gas/Electric Bills: No Difficulty Paying for Meds: No Currently Unemployed: No Education: Associate Degree Difficulty w/ Childcare or Family Care: No Spiritual care concerns: Yes (rastafari) Exam Narrative: General appearance: Well-developed, well-nourished Skin: Normal color Head: Normocephalic, nontraumatic Eyes: Clear conjunctiva ENT: Oropharynx normal, ears normal, nose normal Neck: Supple, nontender Chest and respiratory: Airway patent, no respiratory distress, no accessory muscle use Heart: Regular rate/rhythm Abdomen: Soft, mild right upper quadrant and epigastric pain, no guarding or rebound, quiet bowel sounds, no rash or bruises. Vascular: Normal peripheral pulses, normal capillary refill. Musculoskeletal: Normal range of motion, nontender back Neurologic: Alert and oriented ?3, DOUBLE END SEWER is normal as tested, no gross motor deficit Course Vital Signs Vital signs: Vital Signs Temperature 36.4 C 12/03/22 09:32 Pulse Rate 77 12/03/22 09:32 Respiratory Rate 18 12/03/22 09:32 Pulse Oximetry 100 12/03/22 09:32 Oxygen Delivery Room Air 12/03/22 09:32 Temperature 36.4 C 12/03/22 09:32 Pulse Rate 71 12/03/22 09:50 Respiratory Rate 13 12/03/22 09:50 Blood Pressure 133/86 12/03/22
[2022-12-03 09:55] LABS: Basophils Absolute Auto 0.1 K/mm3 (0.0-0.1); Basophils Percent Auto 0.7 % (0.2-1.2); Eosinophils Absolute Auto 0.1 K/mm3 (0-0.3); Eosinophils Percent Auto 1.8 % (0-4.4); Hematocrit 40.5 % (37.0-47.0); Immature Granulocyte Absolute 0.03 K/mm3 (0.00-0.031); Immature Granulocyte Percent A 0.4 % (0-0.5); Lymphocytes Percent Auto 29.5 % (18.3-44.2); Mean Corpuscular HGB Conc 32.1 g/dl (32-36); Mean Corpuscular Hemoglobin 27.8 pg (26-34); Mean Corpuscular Volume 86.5 fl (80-100); Mean Platelet Volume 9.8 fl (7.4-10.4); Monocytes Absolute Auto 0.4 K/mm3 (0.1-0.6); Monocytes Percent Auto 5.9 % (2.6-8.5); Neutrophils Absolute Auto 4.2 K/mm3 (1.3-6.7); Neutrophils Percent Auto 61.7 % (45.5-73.1); Platelet Count Result 234 k/mm3 (150-375); Red Blood Count 4.68 M/mm3 (4.2-5.4); Red Cell Distribution Width 13.6 % (11.5-14.5); White Blood Count 6.8 K/mm3 (4.5-10.0)
[2022-12-03 10:05] LABS: Alanine Aminotransferase 16 U/L (6-35); Albumin Level 4.1 g/dL (3.5-5.1); Alkaline Phosphatase 61 U/L (38-126); Anion Gap 5 mmol/L (8-16); Aspartate Amino Transferase 21 U/L (14-36); Bilirubin,Total 0.5 mg/dL (0.2-1.3); Blood Urea Nitrogen 12 mg/dL (7-17); Calcium 9.2 mg/dL (8.4-10.2); Carbon Dioxide 30 mmol/L (22-30); Chloride 106 mmol/L (98-107); Estimated Glomerular Filt Rate > 60; Glucose 110 mg/dL (65-110); Lipase 51 U/L (23-300); Potassium 3.8 mmol/L (3.4-5.0); Sodium 141 mmol/L (137-145)
[2022-12-03 10:22] LABS: Appearance Urine Clear (Clear); Bacteria Urine None Seen /hpf; Bilirubin Urine Negative (Negative); Blood Urine Trace (Negative); Color Urine Yellow (Yellow); Glucose Urine UA Negative (Negative); Ketones Urine Negative (Negative); Leukocyte Esterase Ur Negative LEU/UL (Negative); Nitrate Urine Negative (Negative); Non Pathogenic Casts 0-2; Protein Urine Negative (Negative); RBC Urine 0-2 /hpf (0-2); Specific Grav Ur 1.007 (1.001-1.035); Squamous Epithelial Cell Urine None seen /hpf (Few); Urobilinogen Urine 0.2 mg/dL (<2.0); WBC Urine 0-5 /hpf
[2022-12-03] MEDS: SODIUM CHLORIDE 0.9% IV 1,000 ML 999 ML IV CONT (10:46)
[2022-12-03 11:00] LABS: Add Urine Microscopic? YES
== END 2022-12-03 11:48 | disposition home or self-care (01) ==
PROVIDERS: Emergency Provider Emergency Medicine; PCP Emergency Medicine
DX: K65.4 Sclerosing mesenteritis (principal); R10.11 Right upper quadrant pain; I10 Essential (primary) hypertension; K58.2 Mixed irritable bowel syndrome; Z77.22 Contact with and (suspected) exposure to environmental tobacco smoke (acute) (chronic); N28.1 Cyst of kidney, acquired; Z79.82 Long term (current) use of aspirin
CPT/HCPCS: 36415; 71045; 74176; 80053; 81001; 81025; 83690; 85025; 96360; 99284; J7030